=== PATIENT | male | born 1960 | race Caucasian/White ===

== ENCOUNTER 2018-02-08 10:58 | Outpatient (CLI) | payer OTHER ==
--- NOTE | 2018-02-08 12:36 | RAD ---
LUMBAR SPINE 3 VIEWS: HISTORY: A 57-year-old male with a history of low back pain. History of prior surgery. FINDINGS: Laminectomy changes are noted at L5. There is generalized disk-osteophytosis and facet arthrosis wit h narrowing of the L4-L5 disk. No evidence of anterior or retrolisthesis or abnormal translation bet ween flexion and extension. IMPRESSION: Spondylosis with narrowing of multiple disk spaces, most marked at L4-L5 with postoperative changes a t this level. No abnormal translation. POS: [facility]
--- NOTE | 2018-02-08 12:46 | RAD ---
CERVICAL SPINE 3 VIEWS: HISTORY: A 57-year-old male with a history of neck pain. FINDINGS: Neutral, flexion, extension, standing lateral views of the cervical spine are performed. There are s ome generalized disk-osteophytosis and facet arthrosis changes. No prevertebral soft tissue swelling . No abnormal translation between flexion and extension. IMPRESSION: Cervical spondylosis. No abnormal translation. POS: [facility]
== END 2018-02-08 10:59 | disposition home or self-care (01) ==
LOC: TBSIIMAG 10:58
PROVIDERS: ATTEND Neurological Surgery
DX: M47.892 Other spondylosis, cervical region (principal); M54.5 Low back pain; M47.816 Spondylosis without myelopathy or radiculopathy, lumbar region; M48.061 Spinal stenosis, lumbar region without neurogenic claudication; Z98.890 Other specified postprocedural states
CPT/HCPCS: 72040; 72100

== ENCOUNTER 2018-08-14 11:01 | Outpatient (CLI) | payer OTHER ==
--- NOTE | 2018-08-14 11:58 | RAD ---
EXAM: XR Cerv Sp Ap Lat STANDARD PROVIDED CLINICAL HISTORY: Disability examination. History of trauma. COMPARISON: 02/08/2018 FINDINGS: Mild degenerative changes are again seen within the cervical spine with multilevel osteophytes presen t. There is slight narrowing of the C6-7 intervertebral disc space. The vertebral body heights are within normal limits. No fracture or subluxation is seen involving the lumbar spine. Multilevel facet hypertrophic changes are again seen. Prevertebral soft tissues are within normal limits. IMPRESSION: Stable multilevel degenerative changes in the cervical spine.
--- NOTE | 2018-08-14 13:21 | RAD ---
LEFT SHOULDER TWO VIEWS: History: Left shoulder pain, disability exam. FINDINGS/IMPRESSION: There are degenerative changes in the acromioclavicular joint. No fracture or dislocation or bony dunia truction is identified. POS: [facility]
--- NOTE | 2018-08-14 13:21 | RAD ---
LEFT KNEE TWO VIEWS: History: Left knee pain, disability exam. FINDINGS/IMPRESSION: Degenerative changes are present. No fracture, dislocation, or bony destruction is seen. POS: [facility]
== END 2018-08-14 11:02 | disposition home or self-care (01) ==
LOC: BICRAD 11:01
PROVIDERS: ATTEND Internal Medicine
DX: Z02.71 Encounter for disability determination (principal); M19.012 Primary osteoarthritis, left shoulder; M17.12 Unilateral primary osteoarthritis, left knee; M47.812 Spondylosis without myelopathy or radiculopathy, cervical region
CPT/HCPCS: 72040

== ENCOUNTER 2022-04-28 10:48 | Outpatient (CLI) | payer OTHER | END 2022-04-28 10:49 | disposition home or self-care (01) | LOC: BICRAD 10:48 | PROVIDERS: ATTEND Neurological Surgery | DX: M47.26 Other spondylosis with radiculopathy, lumbar region (principal); Z98.890 Other specified postprocedural states | CPT/HCPCS: 72120 ==

== ENCOUNTER 2022-05-18 10:35 | Outpatient (CLI) | payer MEDICARE | END 2022-05-18 10:36 | disposition home or self-care (01) | LOC: TBSIIMAG 10:35 | PROVIDERS: ATTEND Nurse Practitioner Family | DX: M96.1 Postlaminectomy syndrome, not elsewhere classified (principal); M51.36 Other intervertebral disc degeneration, lumbar region | CPT/HCPCS: 72148 ==